=== PATIENT | female | born 1955 | race Caucasian/White ===

== ENCOUNTER 2019-01-11 20:52 | Observation (INO) | payer OTHER ==
[2019-01-11 21:25] LABS: #Basophils 0.2 thou/uL (0.0-0.2); #Eosinphils 0.4 thou/uL (0.0-0.7); #Lymphocytes 4.8 thou/uL (1.20-3.40); #Monocytes 0.9 thou/uL (0.11-0.59); #Neutrophils 6.4 thou/uL (1.40-6.50); %Basophils 1.9 % (0.0-1.0); %Lymphocytes 37.9 % (21.0-51.0); %Monocytes 7.2 % (0.0-10.0); %Neutrophils 50.1 % (42.0-75.0); Hemoglobin 13.7 g/dL (12.0-16.0); Mean Corpuscular HGB CONC 31.8 g/dL (32.0-36.0); Mean Corpuscular Hemoglobin 30.3 pg (27.0-31.0); Mean Corpuscular Volume 95.4 fL (78.0-98.0); Mean Platelet Volume 8.5 fL (7.4-10.4); Platelet Count 431 thou/uL (130-400); RBC Distribution Width 12.9 % (11.5-14.5); White Blood Cell (WBC) Count 12.7 thou/uL (4.8-10.8)
[2019-01-11 21:52] LABS: ALT (SGPT) 22 U/L (8-55); AST (SGOT) 18 U/L (5-34); Albumin 4.4 g/dL (3.4-4.8); Alkaline Phosphatase 99 U/L (40-150); Anion Gap 14 mmol/L (10-20); BUN (Urea Nitrogen) 25 mg/dL (9.8-20.1); Bilirubin, Total Less than 0.2 mg/dL (0.2-1.2); Calc. Creatinine Clearance 0 mL/min (70-130); Calcium 9.8 mg/dL (7.8-10.44); Carbon Dioxide 27 mmol/L (23-31); Chloride 102 mmol/L (98-107); Estimated GFR-MDRD 61; Globulin 2.8 g/dL (2.4-3.5); Glucose 111 mg/dL (80-115); Protein, Total 7.2 g/dL (6.0-8.3); Sodium 139 mmol/L (136-145)
--- NOTE | 2019-01-11 22:16 | RAD ---
AP VIEW CHEST 01/11/19 HISTORY: Chest pain. AP view chest is obtained on 01/11/19. Comparison made to previous exam from 01/10/17. AP view chest demonstrates the lungs to be well aerated. No evidence of active intrathoracic disease seen. No evidence of effusions, pneumonia or pneumothorax seen. IMPRESSION: Unremarkable AP view chest. POS: [facility]
[2019-01-12] MEDS ORDERED: Acetaminophen 325 MG TAB PO PRN (01:13)
[2019-01-12] MEDS ORDERED: Ondansetron ODT 4 MG TAB SL PRN (01:13)
[2019-01-12] MEDS ORDERED: Ondansetron PF 4 MG/2 ML Vial IVP PRN (01:13)
[2019-01-12 01:38] VITALS: BMI 33.1
[2019-01-12] MEDS ORDERED: Nitroglycerin 0.4 MG TAB (25 Tab Bottle) SL SCH (02:45)
[2019-01-12] MEDS ORDERED: Nitroglycerin 0.4 MG TAB (25 Tab Bottle) SL PRN (02:46)
[2019-01-12] MEDS ORDERED: Aspirin 325 MG TAB PO SCH (08:00)
[2019-01-12] MEDS: HYDROcodone/Acetaminophen 7.5/325 mg Tablet PO PRN ×4 (09:43→22:29)
[2019-01-12] MEDS ORDERED: Insulin Regular 300 UNITS/3 ML VIAL SC PRN (14:23)
[2019-01-12] MEDS ORDERED: Dextrose 5% in Water 1,000 ML IV PRN (14:23)
[2019-01-12] MEDS ORDERED: Dextrose 50% Abboject 50 ML SYRINGE IVP PRN (14:23)
[2019-01-12] MEDS ORDERED: ALPRAZolam 0.25 MG TAB PO PRN (17:43)
[2019-01-12] MEDS ORDERED: HYDROcodone/Acetaminophen 7.5/325 mg Tablet PO PRN (17:48)
[2019-01-12] MEDS ORDERED: Hydrochlorothiazide 25 MG TAB PO SCH (18:00)
[2019-01-12] MEDS ORDERED: DULoxetine 60 MG CAP PO SCH (18:00)
[2019-01-12] MEDS ORDERED: Losartan 25 MG TAB PO SCH (18:00)
[2019-01-12] MEDS: Carvedilol 3.125 MG TAB PO SCH (21:13)
[2019-01-12] MEDS: busPIRone HCl 10 MG TAB PO SCH (21:13)
[2019-01-13] MEDS: HYDROcodone/Acetaminophen 7.5/325 mg Tablet PO PRN ×3 (04:01→12:23)
[2019-01-13] MEDS ORDERED: Levothyroxine Sodium 125 MCG TAB PO SCH (06:00)
[2019-01-13] MEDS: busPIRone HCl 10 MG TAB PO SCH (08:24)
[2019-01-13] MEDS: Carvedilol 3.125 MG TAB PO SCH (08:24)
[2019-01-13] MEDS ORDERED: DULoxetine 60 MG CAP PO SCH (09:00)
[2019-01-13] MEDS ORDERED: Aspirin 81 mg Enteric Coated Tablet PO SCH (09:00)
[2019-01-13] MEDS ORDERED: Losartan 25 MG TAB PO SCH (09:00)
[2019-01-13] MEDS ORDERED: Aspirin Chewable 81 MG TAB PO SCH (09:00)
[2019-01-13] MEDS ORDERED: Hydrochlorothiazide 25 MG TAB PO SCH (09:00)
[2019-01-13] MEDS ORDERED: ADENOSINE 60 MG/20 ML VIAL ONE (10:20)
--- NOTE | 2019-01-13 15:34 | NM ---
RADIONUCLIDE STRESS AND REST MYOCARDIAL PERFUSION SCAN WITH CT ATTENUATION CORRECTION AND SPECT IMAGI NG WITH LEFT VENTRICULAR WALL MOTION EVALUATION AND EJECTION FRACTION: HISTORY: Chest pain. FINDINGS: Adenosine protocol. Homogeneous uptake of radiotracer throughout the left ventricular myocardium. Some diaphragmatic atte nuation is apparent. No focal perfusion defect or reversibility. QGS analysis of gated SPECT images shows no focal wall motion abnormalities. Ejection fraction calcul ated at 62%. IMPRESSION: 1. Normal myocardial perfusion scan. 2. Normal LVEF. POS: [facility]
[2019-01-13 16:18] VITALS: BP 140/77; TEMP 97.9
--- NOTE | 2019-01-14 08:02 | HP ---
CHIEF COMPLAINT: Chest pain. HISTORY OF PRESENT ILLNESS: Ms. Hare is 63-year-old female with past medical history of coronary artery disease, status post stent, hypertension, diabetes mellitus, came in with complaining of pain in the chest mainly in the retrosternal area, nonradiating, pressure-like, associated with some shortness of breath, but no nausea, no diaphoresis. Pressure radiates to the back. Pain started when she was trying to go to bed and lasted for more than half an hour. Because of the pain, the patient came to the ER, brought by the family. She did not have any dizziness, nausea, vomiting. In the ER, the patient was evaluated. By the time she came to the hospital, the pain got resolved. In the ER, the patient was found to have markedly elevated blood pressure at 180/90, received nitroglycerin, after which her blood pressures came down. The patient admitted to rule out medical infarction in view of risk factors. PAST MEDICAL HISTORY: 1. Coronary artery disease, status post stent in the right coronary artery. 2. Diabetes mellitus. 3. Hypertension. 4. Hyperlipidemia. 5. Peripheral vascular disease. 6. Hypothyroidism. 7. History of CHF. 8. History of nonsustained ventricular tachycardia, status post loop recorder. 9. History of tobacco abuse. 10. History of VT. PAST SURGICAL HISTORY: Nothing significant. CURRENT MEDICATIONS: The patient is on: 1. Xanax 0.25 mg b.i.d. p.r.n. 2. Chewable aspirin 162 mg b.i.d. 3. Coreg 3.125 b.i.d. 4. Cymbalta 60 mg daily. 5. Glimepiride 4 mg daily. 6. Hydrochlorothiazide 12.5 mg daily. 7. [place] 7.5/ 325 1 qid p.r.n. 8. Levothyroxine 125 mcg daily. 9. Losartan 100 mg daily. 10. Metformin 1000 mg b.i.d. ALLERGIES: CODEINE. FAMILY HISTORY: Nothing contributory. SOCIAL HISTORY: The patient lives with family. No history of alcohol intake. Smokes one pack a day. REVIEW OF SYSTEMS: CARDIOVASCULAR: No chest pain or shortness of breath. RESPIRATORY: No fever or cough. GASTROINTESTINAL: No nausea or vomiting. No abdominal pain. GENITOURINARY: No dysuria or hematuria. CENTRAL NERVOUS SYSTEM: No headache. No dizziness. PHYSICAL EXAMINATION: GENERAL: The patient is alert, awake, oriented x3. VITAL SIGNS: Temperature 98, pulse 76, respirations 20, blood pressure 146/76. HEENT: Head is normocephalic, atraumatic. Pupils are equal, round, and reactive. Nasopharynx is pale and dry. Hard and soft palate, no lesions. SKIN: Turgor decreased. NECK: Supple. No JVD. LUNGS: Bilateral air entry. No rales, no rhonchi. HEART: S1 and S2 regular. ABDOMEN: Soft. No distention. No tenderness. Normal bowel sounds. RECTAL: Deferred. CENTRAL NERVOUS SYSTEM: No focal deficit. LABORATORY DATA: CBC shows WBC 12.7, hemoglobin 13, hematocrit 43, platelets 431. Metabolic panel; sodium 139, potassium 4, chloride 102, CO2 27, blood urea nitrogen 25, creatinine 0.9, glucose 111. Troponin less than 0.010. Chest x-ray unremarkable. EKG shows normal sinus rhythm. No acute ST-T changes seen. ASSESSMENT: 1. Chest pain, rule out myocardial infarction. 2. Coronary artery disease, status post stent. 3. History of myocardial infarction. 4. Diabetes mellitus. 5. Anxiety and depression. 6. Chronic back pain. 7. Hypothyroidism. 8. Hypertension, uncontrolled. PLAN: 1. Vital signs q.4 hours. 2. Activities as tolerated. 3. Allergies, codeine. 4. Diet cardiac. 5. Troponin I q.6 hours x2. 6. Continue home medications. 7. Accu-Chek before meals and at bedtime. 8. Sliding scale mild with regular insulin. 9. Aspirin daily. 10. cardiolite stress test. Job ID: [id number] [facility]
--- NOTE | 2019-01-14 13:27 | DIS ---
DATE OF ADMISSION: 01/11/2019 DATE OF DISCHARGE: 01/13/2019 ADMITTING DIAGNOSES: 1. Chest pain, rule out myocardial infarction. 2. Coronary artery disease, status post stent. 3. History of myocardial infarction. 4. Diabetes mellitus. 5. Hypertension. 6. Chronic neck pain, back pain, and hypothyroidism. 7. History of anxiety and depression. FINAL DIAGNOSES: 1. Chest pain. No evidence of acute myocardial infarction. Negative stress test. 2. Hypertension, uncontrolled, improved. 3. Hyperlipidemia. 4. Coronary artery disease, status post stent. 5. Diabetes mellitus. 6. Anxiety disorder. BRIEF SUMMARY OF HOSPITAL COURSE: Ms. Hare is 63-year-old female admitted because of chest pain, tightness and other risk factors. The patient was admitted to rule out myocardial infarction. Cardiac enzymes were done. Second troponin I was less than 0.010; third one was also less than 0.010. The patient's initial blood pressure was high, but it was controlled with medication. The patient underwent a Cardiolite stress test and it was reported as negative for ischemia. The patient did not have any more chest pain. No new symptoms. The patient is being discharged home. PHYSICAL EXAMINATION: GENERAL: At the time of discharge, she was stable. VITAL SIGNS: Stable. LUNGS: Clear HEART: Heart sounds regular. ABDOMEN: Soft, nontender. Bowel sounds present. DISCHARGE MEDICATIONS: Include; 1. Levothyroxine 125 mcg daily. 2. Metformin 1000 mg b.i.d. 3. Cymbalta 60 mg daily. 4. Xanax 0.25 b.i.d. p.r.n. 5. Coreg 3.125 b.i.d. 6. Hydrochlorothiazide 12.5 daily. 7. Glimepiride 4 mg daily. 8. Losartan 100 mg daily. 9. Aspirin 162 mg b.i.d. 10. BuSpar 10 mg b.i.d. The patient is to continue with cardiac diet and follow up with me in 2 weeks. Job ID: [id number]
--- NOTE | 2019-01-14 13:31 | STRESS ---
Acquisition Time: 2019-01-13 08:56:09 Total Exercise Time: 00:04:00 Test Indications: CHEST PAIN Medications: Protocol: ADENOSINE Max HR: 097 BPM 62% of Pred: 156 BPM Max BP: 138/074 mmHG Max Work Load: 1.0 METS RESTING ECG: NORMAL SINUS RHYTHM AT 71 BPM SYMPTOMS: SOB, BACK AND ARM PAIN NORMAL BLOOD PRESSURE RESPONSE ECTOPY: OCCASIONAL PVCs ECG RESPONSE: NO SIGNIFICANT CHANGES INTERPRETATION: AWAIT NUCLEAR IMAGES FOR DEFINITIVE DIAGNOSIS Confirmed by BROOKS REA ([id number]), manager editorial YASMANI LANG ([id number]) on 01/14/2019 1:31:09 PM Referred By: Luiz JUAREZ Confirmed By:BROOKS REA
== END 2019-01-13 16:32 | disposition home or self-care (01) ==
LOC: ERS 20:52 → 2SW 23:40
PROVIDERS: ADMIT Internal Medicine; ATTEND Internal Medicine
DX: R07.9 Chest pain, unspecified (principal); I10 Essential (primary) hypertension; E78.5 Hyperlipidemia, unspecified; E11.9 Type 2 diabetes mellitus without complications; F41.9 Anxiety disorder, unspecified; F32.9 Major depressive disorder, single episode, unspecified; I25.10 Atherosclerotic heart disease of native coronary artery without angina pectoris; I25.2 Old myocardial infarction; E03.9 Hypothyroidism, unspecified; I73.9 Peripheral vascular disease, unspecified; I47.2 Ventricular tachycardia; Z95.5 Presence of coronary angioplasty implant and graft; Z88.5 Allergy status to narcotic agent; Z79.82 Long term (current) use of aspirin; Z79.84 Long term (current) use of oral hypoglycemic drugs; Z79.899 Other long term (current) drug therapy
CPT/HCPCS: 36415; 36416; 71045; 78452; 80053; 84484; 85025; 93005; 93017; A9500; G0378; J0153

== ENCOUNTER 2021-05-05 12:56 | Outpatient (CLI) | payer MEDICARE, OTHER | END 2021-05-05 12:57 | disposition home or self-care (01) | LOC: EEVIPCON 12:56 → CT 12:56 | PROVIDERS: ATTEND Thoracic Surgery (Cardiothoracic Vascular Surgery) | DX: I25.111 Atherosclerotic heart disease of native coronary artery with angina pectoris with documented spasm (principal) | CPT/HCPCS: 75635; 82565 ==

== ENCOUNTER 2023-10-12 08:26 | Outpatient (CLI) | payer MEDICARE, OTHER ==
[2023-10-12] MEDS ORDERED: Iopamidol 370 76% 100 ML VIAL ONE (12:57)
== END 2023-10-12 08:27 | disposition home or self-care (01) ==
LOC: CT 08:26
PROVIDERS: ATTEND Thoracic Surgery (Cardiothoracic Vascular Surgery)
DX: I74.09 Other arterial embolism and thrombosis of abdominal aorta (principal); I70.0 Atherosclerosis of aorta; K42.9 Umbilical hernia without obstruction or gangrene; K43.9 Ventral hernia without obstruction or gangrene; I70.1 Atherosclerosis of renal artery; Z98.890 Other specified postprocedural states
CPT/HCPCS: 75635; 82565; Q9967